=== PATIENT | male | born 1955 | race Caucasian/White ===

== ENCOUNTER 2019-01-11 08:18 | Inpatient (IN) ==
--- NOTE | 2019-01-04 09:48 | History & Physical Report ---
Date of Service January 04, 2019 date of surgery: 01-11-19 Assessment & Plan (1) Tricompartment osteoarthritis of left knee: Further care discussed with patient and at this point in time has failed conservative measures and would like to proceed with a left total knee replacement. Plan on discharge will be home with home health physical therapy. DVT prophalaxis with TEDs, SCDs and will also place on aspirin 81 mg p.o. b.i.d. for a month postop. Patient will have follow up appointment in our office two weeks post op for staple removal and re-evaluation. Patient otherwise has no other questions or concerns. History of Present Illness Chief Complaint: left knee pain Primary Care Provider: Ama Grayson Chris is a 63 year old male who complains of left knee pain, presents for pre-op evaluation prior to a left total knee replacement by dr Champion at [facility]. He complains of pain, crepitus, decreased range of motion, instability and stiffne ss in his knee. Chris states that the symptoms have been chronic and non- traumatic. He states that the symptoms occur constantly with intermittent worsening. Currently the patient states that the symptoms are moderate-severe. The pain is described as aching, sharp and throbbing. The symptoms occur continuously. The symptoms are aggravated by ascending stairs, daily activities, first steps while awake walking. Prior NSAIDs include Ibuprofen and Aleve. He has been treated with previous cortisone injections as well as visco injections in the past without much relief. at this point his pain is affecting his ADLs and would like to proceed with a left total knee replacement. Allergies Allergy/AdvReac Type Severity Reaction Status Date / Time Pertussis Vaccines Allergy Unknown Hives Verified 01/03/19 08:06 Home Medications Home Medications Medication Instructions Recorded Confirmed Type gabapentin 600 mg PO BID 01/03/19 01/03/19 History orlxosxb-zsae-itw6-C-arun-bosw 2 tab PO QAM 01/03/19 01/03/19 History [Osteo Bi-Flex Triple Strength] meloxicam 15 mg PO QAM 01/03/19 01/03/19 History methocarbamol 750 mg PO BID 01/03/19 01/03/19 History metoprolol tartrate 50 mg PO BID 01/03/19 01/03/19 History multivitamin 2 tab PO QAM 01/03/19 01/03/19 History Past Med/Surg History Medical History BPH (benign prostatic hyperplasia) Hypertension Osteoarthritis Surgical History Fusion of spine LOWER BACK-05/2018 [facility] History of colonoscopy Social History Preferred Language: Kazakh Communication Ability: Effective Flat Ironer Required: No Current Living Situation: Spouse Other Information That Helps Us Care for You: No Feels Safe at Home: Yes Safety Concerns: Feels Safe At This Time Smoking Status: Never smoker Do You Dip or Chew Tobacco: No (QUIT 2003) ; Second Hand Exposure: No ; Hx Alcohol Use: Yes Alcohol type: beer Hx Substance Use: No Review of Systems Review of Systems: All systems reviewed & are unremarkable except as noted in HPI & below Constitutional: no fever, no chills and no sweats Respiratory: no cough and no dyspnea Cardiovascular: no chest pain, no dyspnea and no orthopnea Gastrointestinal: no abdominal pain, no nausea and no vomiting Musculoskeletal: as per Subjective / HPI Physical Exam Physical Exam: Ht: 6ft 1in Wt: 151.95kg BP: 152/94 Pulse: 84 Constitutional: WD/WN, vitals as above no acute distress Respiratory: normal respiratory effort, lungs clear to auscultation no respiratory distress, no labored breathing and does not use accessory muscles Cardiovascular: RRR, no murmur, no edema Gastrointestinal (Abdomen): normal bowel sounds, soft, nontender, no hepatosplenomegaly Musculoskeletal: Knee: + effusion (+1 effusion), + limited ROM of knee (ROM 0/3/110), + knee ROM with crepitation, + joint line tenderness (medial joint line), + varus alignment and + Marcella's sign positive; no deformity, no skin erythema, no ecchymosis, no valgus laxity, no varus laxity, valgus stress test negative, varus stress test negative, anterior drawer test negative, posterior drawer test negative, Dianne's sign negative and pivot shift test negative Ankle: no deformity Results & Data Diagnostic Findings Left Knee X-ray 01-30-19 confirms advanced degenerative changes to the left knee, greatest medial compartment and patellofemoral joint, showing joint space narrowing, osteophyte formation and subchondral sclerosis. no acute bony pathology noted. no loose bodies noted.
--- NOTE | 2019-01-04 12:15 | PAT Medication Instructions ---
Medication Instructions Date of Service January 04, 2019 Home Medications gabapentin 600 mg PO BID cpckanaz-aasf-psz2-C-arun-bosw [Osteo Bi-Flex Triple Strength] 2 tab PO QAM meloxicam 15 mg PO QAM methocarbamol 750 mg PO BID metoprolol tartrate 50 mg PO BID multivitamin 2 tab PO QAM ASK your surgeon for instructions meloxicam 15 mg PO QAM STOP taking 2 weeks before surgery (or as soon as possible if surgery is within 2 weeks) tbsyqnxs-wvtq-spn5-C-arun-bosw [Osteo Bi-Flex Triple Strength] 2 tab PO QAM DO NOT take the morning of surgery methocarbamol 750 mg PO BID multivitamin 2 tab PO QAM Take morning of surgery With a small sip of water, OTHERWISE NOTHING TO EAT OR DRINK AFTER MIDNIGHT: gabapentin 600 mg PO BID metoprolol tartrate 50 mg PO BID Take evening before surgery gabapentin 600 mg PO BID methocarbamol 750 mg PO BID metoprolol tartrate 50 mg PO BID Other Notes If you have any questions please call us at [phone] or [phone] or [phone] or [phone]
--- NOTE | 2019-01-04 14:20 | Anesthesiology Consultation ---
Date of Service January 04, 2019 Assessment & Plan (1) Encounter for pre-operative examination: Chart Review Chart Review: Acceptable Risk for Surgery (pending surgeon-ordered PCP clearance done 01/02 (Dr. Grayson)) and Patient seen in Pre Admission Testing Teaching & Discussion Pre-Anesthesia Teaching/Discussion Notes: Instructed NPO after midnight before surgery,except medications with 15 cc of water. Medication instructions provided according to the PAT guidelines. History Surgery Operation Date: 01/11/19 10:25 Proposed Procedures p Left Total Knee Arthroplasty - Harish Champion DO Height/Weight Height: 6 ft 1 in Weight: 152.9 kg Allergies Allergy/AdvReac Type Severity Reaction Status Date / Time Pertussis Vaccines Allergy Unknown Hives Verified 01/03/19 08:06 acetaminophen [From Percocet] AdvReac "zombie-like" Verified 01/04/19 14:23 feeling, hallucinations cyclobenzaprine AdvReac "zombie-like" Verified 01/04/19 14:23 [From Flexeril] feeling, hallucinations oxycodone [From Percocet] AdvReac "zombie-like" Verified 01/04/19 14:23 feeling, hallucinations Medications Home Medications Medication Instructions Recorded Confirmed Last Taken gabapentin 600 mg PO BID 01/03/19 01/03/19 Unknown gqugqzzp-yunr-rcr5-C-arun-bosw 2 tab PO QAM 01/03/19 01/03/19 Unknown [Osteo Bi-Flex Triple Strength] meloxicam 15 mg PO QAM 01/03/19 01/03/19 Unknown methocarbamol 750 mg PO BID 01/03/19 01/03/19 Unknown metoprolol tartrate 50 mg PO BID 01/03/19 01/03/19 Unknown multivitamin 2 tab PO QAM 01/03/19 01/03/19 Unknown Past Medical History Medical History BPH (benign prostatic hyperplasia) Hypertension Morbid obesity Osteoarthritis Exercise / Class Metabolic Activity II 4-5 Yardwork/Stairs/Walk up hill Past Surgical History Surgical History Fusion of spine lumbar History of colonoscopy Past Anesthesia History No Family Hx of Anesthesia Complications and Other "Slow to wake" with lumbar fusion; no known hx of reintubation History of PONV No Hx of PONV and Hx of Motion Sickness (occasional) Social History Smoking Status: Never smoker Do You Dip or Chew Tobacco: No (QUIT 2003) Hx Alcohol Use: Yes Alcohol type: beer alcohol intake frequency: a few times a month Hx Substance Use: No Review of Systems Patient denies chest pain, shortness of breath, dyspnea on exertion, reflux, cough, wheezing, palpitations. Physical Exam Vital Signs VITALS BP 149/74 P 46 (chronic bradycardia; asymptomatic on beta amadeo) TEMP 98.1 SP02 94%RA RESP 18 PHYSICAL Full neck and c-spine range of motion. Full TMJ range of motion. TMD 3 finger breaths Mallampati Score 3 Dentition: intact Lungs: clear throughout to auscultation Cardiac: regular rate and rhythm, no murmurs noted Spine: normal Carotid arteries: negative bruit Extremities: no edema Short thick neck Testing Laboratory Results 01/04/19 14:37 01/04/19 14:37 PT 10.3 Seconds (9.0-12.0) 01/04/19 14:37 INR 1.0 (0.9-1.1) 01/04/19 14:37 APTT 25.6 Seconds (21.0-31.0) 01/04/19 14:37 Urine Color Yellow 01/04/19 Unknown Urine Appearance Clear (Clear) 01/04/19 Unknown Urine pH 5.0 (4.5-7.5) 01/04/19 Unknown Ur Specific [place] 1.018 (1.000-1.030) 01/04/19 Unknown Urine Protein Negative (Negative) 01/04/19 Unknown Urine Glucose (UA) Negative (Negative) 01/04/19 Unknown Urine Ketones Negative (Negative) 01/04/19 Unknown Urine Nitrite Negative (Negative) 01/04/19 Unknown Ur Leukocyte Esterase Negative (Negative) 01/04/19 Unknown Blood Type A Positive 01/04/19 14:37 Antibody Screen NEGATIVE 01/04/19 14:37 Electrocardiogram Date: 04/20/18 SB at 44bpm. Old inferior infarct. Chest X-Ray Date: 01/04/19 Atherosclerosis of the aortic arch. Cardiac silhouette enlarged. Lungs and pleural spaces clear. Degenerative changes of the thoracic spine. Old posterior right upper rib fractures may be present. Upper abdomen normal. Cardiomegaly. No other convincing evidence of acute cardiopulmonary disease.
--- NOTE | 2019-01-04 14:56 | XRay Report ---
XR chest Pre-admission PA/Lat CLINICAL HISTORY: 63 years-old Male presenting with preoperative assessment. TECHNIQUE: PA and lateral views of the chest were obtained. COMPARISON: None. FINDINGS: Atherosclerosis of the aortic arch. Cardiac silhouette enlarged. Lungs and pleural spaces clear. Dege nerative changes of the thoracic spine. Old posterior right upper rib fractures may be present. Upper abdomen normal. IMPRESSION: 1. Cardiomegaly. No other convincing evidence of acute cardiopulmonary disease. Electronically signed by: Porfirio Yang M.D. 01/04/2019 2:55 PM
[2019-01-04 15:47] LABS: Basophils # (auto) 0.04 K/uL (0-0.2); Basophils % (auto) 0.5 %; Eosinophils # (auto) 0.27 K/uL (0-0.5); Eosinophils % (auto) 3.6 %; Hematocrit (blood only) 44.5 % (42-52); Hemoglobin 15.1 g/dL (14.0-18.0); Immature Granulocytes # (auto) 0.03 K/uL (0.00-0.02); Immature Granulocytes % (auto) 0.4 %; Lymphocytes # (auto) 2.07 K/uL (1.2-3.4); Lymphocytes % (auto) 27.2 %; Mean Corpuscular Hemoglobin 29.7 pg (25-34); Mean Corpuscular Hgb Conc 33.9 g/dL (32-36); Mean Corpuscular Volume 87.6 fL (80-100); Mean Platelet Volume 12.2 fL (7.4-10.4); Monocytes # (auto) 0.52 K/uL (0.11-0.59); Monocytes % (auto) 6.8 %; Neutrophils # (auto) 4.67 K/uL (1.4-6.5); Neutrophils % (auto) 61.5 %; Platelet Count 209 K/uL (130-400); RDW Coefficient of Variation 13.8 % (11.5-14.5); RDW Standard Deviation 44.2 fL (36.4-46.3); Red Blood Count 5.08 M/uL (4.7-6.1)
[2019-01-04 15:48] LABS: Appearance Urine Clear (Clear); Bilirubin Urine Negative (Negative); Blood Urine Negative (Negative); Color Urine Yellow; Glucose Urine UA Negative (Negative); Ketones Urine Negative (Negative); Leukocyte Esterase Urine Negative (Negative); Nitrite Urine Negative (Negative); Protein Urine Negative (Negative); Specific Gravity Urine 1.018 (1.000-1.030); Urobilinogen Urine Negative (Negative)
[2019-01-04 15:58] LABS: Partial Thromboplastin Ratio 0.9; Partial Thromboplastin Time 25.6 Seconds (21.0-31.0); Prothrombin Time 10.3 Seconds (9.0-12.0)
[2019-01-04 16:10] LABS: Albumin Level 4.1 gm/dl (3.4-5.0); BUN Creatinine Ratio 12.1 (10-20); Calcium 9.2 mg/dl (8.5-10.1); Creatinine Clr Calc Pharmacy 96.5 ml/min; Est GFR (African American) 72.3; Est GFR (Non-African American) 62.4; Potassium 4.6 mmol/L (3.5-5.1)
[2019-01-05 06:03] LABS: Estimated Average Glucose 111 mg/dl; Hemoglobin A1C 5.5 % (4.5-5.6)
[~2019-01-11 08:18] MED LIST: ACETAMINOPHEN 500 MG TAB PO SCH; BUPIVACAINE 0.5 % 5 MG/1 ML PF 10ML VIAL ONE; CEFAZOLIN 3000MG 72.5 ML IV SCH; CeleBREX 200 MG CAP PO SCH; EPINEPHrine INJ 1 MG/ML AMP ONE; FAMOTIDINE 20 MG TAB PO SCH; GABAPENTIN 600 MG DOSE PO SCH; LR 500ML BOLUS, THEN 15ML/HR IV SCH; METOCLOPRAMIDE HCL 10 MG TABLET PO SCH; ROPIVACAINE 0.5% 5 MG/ML 30 ML VIAL ONE; ROPIVACAINE 0.5% HCL/PF 150 MG, BUPIVACAINE 0.5% MPF 30 ML, EPINEPHrine 30MG/30ML (OR U... INSTIL SCH; TRANEXAMIC ACID 1,000 MG **IV Intra-op IV SCH; TRANEXAMIC ACID 1,000 MG **IV Pre-op IV SCH; dexAMETHasone 4 MG TAB PO SCH
[2019-01-11] MEDS ORDERED: fentaNYL citrate 100 MCG/2 ML VIAL ONE ×3 (09:04→13:03)
[2019-01-11] MEDS ORDERED: PROPOFOL IV EMULSION 10 MG/ML 20 ML VIAL IV ONE ×3 (09:04→11:32)
[2019-01-11] MEDS ORDERED: LIDOCAINE HCL 2% 2 ML VIAL/AMP(20MG/ML) INFIL ONE (09:04)
[2019-01-11] MEDS ORDERED: MIDAZOLAM HCL 1 MG/ML 2ML VIAL ONE (09:04)
--- NOTE | 2019-01-11 09:46 | History & Physical Bridge Note ---
Date of Service January 11, 2019 History & Physical Bridge Note I have examined the patient, reviewed the History & Physical and in the interval since the performance of the History & Physical I have noted the following changes of clinical significance: no changes noted
[2019-01-11] MEDS ORDERED: ORTHO JOINT ANESTHETIC ONE (10:15)
[2019-01-11] MEDS ORDERED: BACITRACIN INJ 50,000 UNIT VIAL ONE (10:15)
[2019-01-11] MEDS ORDERED: DEXAMETHASONE SOD INJ 4 MG/ML VIAL ONE (11:14)
[2019-01-11] MEDS ORDERED: ONDANSETRON INJ 2 MG/ML 2 ML VIAL ONE (11:14)
[2019-01-11] MEDS ORDERED: HYDROmorphone INJ 2 MG/ML SYR/VIAL ONE (11:36)
--- NOTE | 2019-01-11 12:28 | Operative Report ---
Post Operative Report Pre & Post Diagnosis Operation Date: 01/11/19 11:00 Pre-Op Diagnosis: Unilateral Primary Osteoarthritis, Left Knee BMI 44.5 Post-Op Diagnosis: Unilateral Primary Osteoarthritis, Left Knee BMI 44.5 Procedure Operation Date: 01/11/19 11:00 Actual Procedures p Left Total Knee Arthroplasty(Left) utilizing Pepe [employer] Nephew non-block total knee arthroplasty size 7 femur 7 tibia 11 polyethylene 35 oval patella-BMI 44.5 Harish Champion DO Surgeon Harish Champion DO High School [employer] Instructor Bob COTE Estimated Blood Loss 5 Findings Consistent with Post-Op Diagnosis Patient presents with severe end-stage tricompartmental degenerative joint disease left knee no response to conservative management plan findings times surgery note and findings consistent with that of a eburnated [id number]-[id number] medial compartment patellofemoral compartment marginal osteophyte subchondral sclerosis and subchondral cystic changes large effusion. Specimens Bone and cartilage Drains Medium bore Hemovac Anesthesia Type General Regional Complications none Disposition Accompanied Patient To Recovery: No Disposition: Recovery Room Indications Patient presents being seen and evaluated for complaints of ongoing pain throughout his left knee is no response to conservative management including physical therapy anti-inflammatories relative rest activity modifications corticosteroid injections Visco supplementation patient has been on weight loss program remains at a BMI of 44.5 Description of Procedure After proper prepping and draping of the left lower extremity anterior midline incision was made over the region of the extensor extensor mechanism after meticulous hemostasis was obtained and maintained in subcutaneous tissues a medial parapatellar incision was made The patella was subluxed lateralward the medial lateral gutter were cleaned from any hypertrophic synovitis and scar tissue of the distal femoral block was placed and the distal femoral osteotomy cut was made subsequently the chamfers anterior and posterior osteotomy cuts were made utilizing the 4-in-1 block the tibia was subsequently subluxed anteriorward medial and ateral meniscal remnants were excised in their entirety remnants of the anterior and posterior cruciate ligaments were excised in their entirety excellent exposure of the proximal tibia was obtained the tibial osteotomy guide was placed on the proximal tibial osteotomy cut was made once again the knee was irrigated with copious amounts of sterile saline solution the patella was subsequently everted lateralward thickened scar tissue around the patella was removed the patella was subsequently cut utilizing a freehand technique and was drilled prepared for final preparation and placement of patella socially flexion-extension gaps were checked and the equal and symmetric trials were placed to the appropriate femoral and tibial trials with poly-spacer being placed for equal flexion and extension gaps and full range of motion including extension to 0 and flexion to 140 the trial components after having been taken to recovery range of motion was subsequently removed meticulous hemostasis was obtained and maintained subsequently a knee block injection of joint cocktail including ropivacaine 0.5% 150 mg. Bupivacaine 0.5% epinephrine 1-200,030 mL's toradol 30 mg dexamethasone 4 mg ketamine 10 mg clonidine 100 micrograms normal saline solution 30 mg was infiltrated into the soft tissues of the posterior knee medial lateral gutters and periosteal synovium special attention was paid to protect neurovascular structures at all times subsequently trial components having been removed the knee was irrigated with sterile saline solution. debris was removed the proximal tibia was subsequently prepared and was made ready for the placement of the tibial component tibial component was also cemented and tamped into position the femoral component was subsequently placed and cemented in the position the patellar component was subsequently cemented in position because hemostasis once again obtained and maintained wound having been thoroughly irrigated with debridement and debridement lavage was performed as well as a medial parapatellar incision closed with #1 Vicryl in interrupted fashion subcutaneous was closed with #2 Vicryl skin was closed with skin clips. PA-C was necessary for prepping and drapping as well as wound closure of deep fascia Sub cutaneous tissue and skin and was necessary for the case. A sterile compressive dressing was placed patient was taken to recovery in stable condition of report dictated by Akira I attest to the content of the Intraoperative Record and any orders documented therein. Any exceptions are noted below. I attest to the content of the Intraoperative Record and any orders documented therein. Any exceptions are noted below.
[2019-01-11] MEDS ORDERED: LABETALOL HCL IV 5 MG/ML 20ML IV PRN (12:30)
[2019-01-11] MEDS ORDERED: ATROPINE SULFATE 0.1 MG/ML 10ML SYR IV PRN (12:30)
[2019-01-11] MEDS ORDERED: ePHEDrine sulfate 50 MG/ML AMP IV PRN (12:30)
[2019-01-11] MEDS ORDERED: FLUMAZENIL 0.1 MG/1 ML 10 ML VIAL IV PRN (12:30)
[2019-01-11] MEDS ORDERED: PROMETHAZINE HCL 12.5 MG in SODIUM CHLORIDE 0.9% 50 ML IV PRN (12:30)
[2019-01-11] MEDS ORDERED: ONDANSETRON INJ 2 MG/ML 2 ML VIAL IV PRN ×2 (12:30→14:51)
[2019-01-11] MEDS ORDERED: NALOXONE HCL 0.4 MG/1 ML VIAL/CARP IV PRN ×2 (12:30→14:51)
[2019-01-11] MEDS: HYDROmorphone INJ 0.5 MG/0.5 ML SYR IV PRN ×2 (13:58→14:03)
--- NOTE | 2019-01-11 14:01 | XRay Report ---
LEFT KNEE 2 VIEWS History: Left total knee arthroplasty. Degenerative arthritis. Postop. FINDINGS: The patient is status post a left total knee arthroplasty. The hardware is intact. No fract ure or dislocation. Skin pedro are in place. IMPRESSION: Left total knee arthroplasty. No evidence for hardware complication. Electronically signed by: Blue Babcock M.D. 01/11/2019 2:00 PM
--- NOTE | 2019-01-11 14:34 | Anesthesiology Progress Note ---
Date of Service January 11, 2019 Anesthesia Post Procedure Vital Signs Vital Signs: Temp Pulse Pulse Resp BP Pulse Ox 01/11/19 14:20 36.5 C 48 L 15 137/81 94 01/11/19 14:10 36.5 C 48 L 15 149/76 H 96 01/11/19 14:00 36.3 C L 50 L 13 132/76 95 01/11/19 13:50 36.3 C L 49 L 12 150/88 H 95 01/11/19 13:40 36.3 C L 48 L 12 137/72 93 01/11/19 13:30 36.3 C L 76 14 147/82 H 90 01/11/19 13:24 36.3 C L 62 18 150/92 H 92 01/11/19 08:45 36.6 C 43 L 20 156/99 H 96 Transfer of Care Handoff Completed per policy Notes Mental Status: alert / awake / arousable Patient Amnestic to Procedure: Yes Nausea / Vomiting: adequately controlled Pain: adequately controlled Airway Patency, RR, SpO2: stable & adequate BP & HR: stable & adequate Hydration State: stable & adequate Anesthetic Complications: no major complications apparent
[2019-01-11] MEDS ORDERED: HYDROmorphone INJ 0.5 MG/0.5 ML SYR IV PRN (14:51)
[2019-01-11] MEDS ORDERED: BISACODYL 10 MG SUPP PR PRN (14:51)
[2019-01-11] MEDS ORDERED: MAGNESIUM HYDROXIDE SUSP 30 ML UDC PO PRN (14:51)
[2019-01-11] MEDS ORDERED: SODIUM CHLORIDE 0.9% 1000ML 1,000 ML IV SCH (15:00)
[2019-01-11] MEDS: ACETAMINOPHEN 500 MG TAB PO SCH (17:02)
[2019-01-11] MEDS: FERROUS GLUCONATE 324 MG TAB PO SCH (17:02)
[2019-01-11] MEDS: DOCUSATE SODIUM 100 MG CAP PO SCH (20:05)
[2019-01-11] MEDS: METOPROLOL TARTRATE 50 MG TAB PO SCH (20:05)
[2019-01-11] MEDS: CEFAZOLIN 2000MG 2,000 MG/15 ML SYR IV SCH (20:05)
[2019-01-11] MEDS: ASPIRIN 81 MG ECTAB PO SCH (20:05)
[2019-01-11] MEDS: GABAPENTIN 600 MG TAB PO SCH (20:05)
[2019-01-11] MEDS: METHOCARBAMOL 750 MG TABLET PO SCH (20:05)
[2019-01-11] MEDS ORDERED: SENNA 8.6 MG TAB PO SCH (21:00)
[2019-01-12] MEDS: CEFAZOLIN 2000MG 2,000 MG/15 ML SYR IV SCH (03:48)
[2019-01-12] MEDS: OXYCODONE HCL IR 5 MG TAB (IMMEDIATE RELEASE) PO PRN ×3 (06:14→15:56)
[2019-01-12] MEDS: ACETAMINOPHEN 500 MG TAB PO SCH ×2 (06:14→14:13)
[2019-01-12 06:58] LABS: Hematocrit (blood only) 41.5 % (42-52); Hemoglobin 14.1 g/dL (14.0-18.0); Mean Corpuscular Hemoglobin 29.9 pg (25-34); Mean Corpuscular Volume 88.1 fL (80-100); Mean Platelet Volume 11.5 fL (7.4-10.4); Platelet Count 201 K/uL (130-400); RDW Coefficient of Variation 13.8 % (11.5-14.5); RDW Standard Deviation 44.7 fL (36.4-46.3); Red Blood Count 4.71 M/uL (4.7-6.1); White Blood Count 17.34 K/uL (4.8-10.8)
--- NOTE | 2019-01-12 07:16 | Orthopedic Progress Note ---
Date of Service January 12, 2019 Assessment & Plan (1) Status post total left knee replacement: POD #1 s/p Left TKA pt/ot dvt proph with FAUSTO/SCD/ASA recheck after PT today for poss discharge after PT today Subjective POD #1 s/p Left TKA Review of Systems Constitutional: no fever, no chills and no sweats Respiratory: no cough and no dyspnea Cardiovascular: no chest pain and no dyspnea Gastrointestinal: no abdominal pain, no nausea and no vomiting Physical Exam Physical Exam: Vital Signs Temp 36.7 C 01/12/19 03:30 Pulse 48 L 01/12/19 03:30 Resp 18 01/12/19 03:30 BP 127/75 01/12/19 03:30 Pulse Ox 94 01/12/19 03:30 Intake & Output 01/11/19 01/12/19 01/12/19 18:59 06:59 18:59 Intake Total 2392.5 / 3145.833 753.333 / 3145.833 Output Total 305 / 1880 1575 / 1880 400 / 400 Balance 2087.5 / 1265.833 -821.667 / 1265.83 3 -400 / -400 Weight 152 kg Intake: IV 792.5 / 1245.833 453.333 / 1245.833 Ancef 3000MG 7 2.5 ml @ 130 mls/ 72.5 / 72.5 hr IV PREOP SC H Rx#:[id number] Lr 1,000 ml @ 15 mls/hr IV . 500 / 500 Q24H LYNSEY Rx#:[id number] Nss 1000ML 1,0 00 ml @ 100 mls/ 453.333 / 453.333 hr IV .Q10H SC H Rx#:[id number] Cyklokapron 1, 000 mg In Sodium 220 / 220 Chloride 100 m l @ 660 mls/hr IV 0630 LYNSEY Rx#:[id number] IV Perioperative 1600 / 1600 Oral 300 / 300 Output: Urine 300 / 1875 1575 / 1875 400 / 400 Estimated Blood Loss 5 / 5 Constitutional: WD/WN, vitals as above no acute distress Musculoskeletal: Left Leg: NVDI, calf SNT, negative esteban sign. DP palpable, able to wiggle toes/ankle movement without difficulty. dressing clean dry and intact. Results & Data Vital Signs (Past 12 Hours) Vital Signs Temp Pulse Resp BP Pulse Ox 01/12/19 03:30 36.7 C 48 L 18 127/75 94 01/11/19 23:35 36.5 C 44 L 17 123/68 01/11/19 19:26 36.5 C 73 16 150/79 H 96 Laboratory Results Laboratory Results WBC 17.34 K/uL (4.8-10.8) H 01/12/19 06:34 RBC 4.71 M/uL (4.7-6.1) 01/12/19 06:34 Hgb 14.1 g/dL (14.0-18.0) 01/12/19 06:34 Hct 41.5 % (42-52) L 01/12/19 06:34 MCV 88.1 fL (80-100) 01/12/19 06:34 MCH 29.9 pg (25-34) 01/12/19 06:34 MCHC 34.0 g/dL (32-36) 01/12/19 06:34 RDW Std Deviation 44.7 fL (36.4-46.3) 01/12/19 06:34 RDW Coeff of Maykel 13.8 % (11.5-14.5) 01/12/19 06:34 Plt Count 201 K/uL (130-400) 01/12/19 06:34 MPV 11.5 fL (7.4-10.4) H 01/12/19 06:34 Immature Gran % (Auto) 0.4 % 01/04/19 14:37 Neut % (Auto) 61.5 % 01/04/19 14:37 Lymph % (Auto) 27.2 % 01/04/19 14:37 [place] % (Auto) 6.8 % 01/04/19 14:37 Eos % (Auto) 3.6 % 01/04/19 14:37 Baso % (Auto) 0.5 % 01/04/19 14:37 Immature Gran # (Auto) 0.03 K/uL (0.00-0.02) H 01/04/19 14:37 Neut # (Auto) 4.67 K/uL (1.4-6.5) 01/04/19 14:37 Lymph # (Auto) 2.07 K/uL (1.2-3.4) 01/04/19 14:37 [place] # (Auto) 0.52 K/uL (0.11-0.59) 01/04/19 14:37 Eos # (Auto) 0.27 K/uL (0-0.5) 01/04/19 14:37 Baso # (Auto) 0.04 K/uL (0-0.2) 01/04/19 14:37 PT 10.3 Seconds (9.0-12.0) 01/04/19 14:37 INR 1.0 (0.9-1.1) 01/04/19 14:37 APTT 25.6 Seconds (21.0-31.0) 01/04/19 14:37 PTT Ratio 0.9 01/04/19 14:37 Sodium 140 mmol/L (136-145) 01/12/19 06:34 Potassium 4.6 mmol/L (3.5-5.1) 01/12/19 06:34 Chloride 109 mmol/L (98-107) H 01/12/19 06:34 Carbon Dioxide 24 mmol/L (21-32) 01/12/19 06:34 Anion Gap 7.0 (3-11) 01/12/19 06:34 BUN 19 mg/dl (7-18) H 01/12/19 06:34 Creatinine 1.24 mg/dl (0.6-1.4) 01/12/19 06:34 Est Cr Clr Drug Dosing 96.2 ml/min 01/12/19 06:34 Est GFR ( Amer) 72.3 01/12/19 06:34 Est GFR (Non-Af Amer) 62.4 01/12/19 06:34 BUN/Creatinine Ratio 15.1 (10-20) 01/12/19 06:34 Glucose 140 mg/dl (70-99) H 01/12/19 06:34 Estimat Average Glucose 111 mg/dl 01/04/19 14:37 Hemoglobin A1c 5.5 % (4.5-5.6) 01/04/19 14:37 Calcium 8.5 mg/dl (8.5-10.1) 01/12/19 06:34 Albumin 4.1 gm/dl (3.4-5.0) 01/04/19 14:37 Urine Color Yellow 01/04/19 Unknown Urine Appearance Clear (Clear) 01/04/19 Unknown Urine pH 5.0 (4.5-7.5) 01/04/19 Unknown Ur Specific [place] 1.018 (1.000-1.030) 01/04/19 Unknown Urine Protein Negative (Negative) 01/04/19 Unknown Urine Glucose (UA) Negative (Negative) 01/04/19 Unknown Urine Ketones Negative (Negative) 01/04/19 Unknown Urine Blood Negative (Negative) 01/04/19 Unknown Urine Nitrite Negative (Negative) 01/04/19 Unknown Urine Bilirubin Negative (Negative) 01/04/19 Unknown Urine Urobilinogen Negative (Negative) 01/04/19 Unknown Ur Leukocyte Esterase Negative (Negative) 01/04/19 Unknown Blood Type A Positive 01/04/19 14:37 Antibody Screen NEGATIVE 01/04/19 14:37 Diagnostic Findings LEFT KNEE 2 VIEWS History: Left total knee arthroplasty. Degenerative arthritis. Postop. FINDINGS: The patient is status post a left total knee arthroplasty. The hardware is intact. No fracture or dislocation. Skin pedro are in place. IMPRESSION: Left total knee arthroplasty. No evidence for hardware complication.
[2019-01-12] MEDS: FERROUS GLUCONATE 324 MG TAB PO SCH (07:33)
[2019-01-12] MEDS: ASPIRIN 81 MG ECTAB PO SCH (07:34)
[2019-01-12] MEDS: GABAPENTIN 600 MG TAB PO SCH (07:34)
[2019-01-12] MEDS: METHOCARBAMOL 750 MG TABLET PO SCH (07:35)
[2019-01-12] MEDS: METOPROLOL TARTRATE 50 MG TAB PO SCH (07:36)
[2019-01-12] MEDS: DOCUSATE SODIUM 100 MG CAP PO SCH (07:37)
[2019-01-12 07:38] LABS: BUN Creatinine Ratio 15.1 (10-20); Calcium 8.5 mg/dl (8.5-10.1); Creatinine Clr Calc Pharmacy 96.2 ml/min; Est GFR (African American) 72.3; Est GFR (Non-African American) 62.4; Potassium 4.6 mmol/L (3.5-5.1)
[2019-01-12] MEDS ORDERED: MULTIVITAMIN TAB PO SCH (09:00)
--- NOTE | 2019-01-12 10:31 | Anesthesiology Progress Note ---
Date of Service January 12, 2019 Anesthesia Post Procedure Vital Signs Vital Signs: Temp Pulse Pulse Resp BP Pulse Ox 01/12/19 07:54 36.5 C 50 L 16 151/81 H 94 01/12/19 03:30 36.7 C 48 L 18 127/75 94 01/11/19 23:35 36.5 C 44 L 17 123/68 01/11/19 19:26 36.5 C 73 16 150/79 H 96 01/11/19 17:48 37.0 C 75 16 162/85 H 95 01/11/19 16:49 36.5 C 52 L 16 150/81 H 98 01/11/19 15:51 37 C 50 L 16 142/77 H 94 01/11/19 15:17 36.7 C 74 16 156/87 H 97 01/11/19 14:45 36.6 C 49 L 18 151/78 H 98 01/11/19 14:20 36.5 C 48 L 15 137/81 94 01/11/19 14:10 36.5 C 48 L 15 149/76 H 96 01/11/19 14:00 36.3 C L 50 L 13 132/76 95 01/11/19 13:50 36.3 C L 49 L 12 150/88 H 95 01/11/19 13:40 36.3 C L 48 L 12 137/72 93 01/11/19 13:30 36.3 C L 76 14 147/82 H 90 01/11/19 13:24 36.3 C L 62 18 150/92 H 92 Notes Mental Status: alert / awake / arousable and participated in evaluation Patient Amnestic to Procedure: Yes Nausea / Vomiting: adequately controlled Pain: adequately controlled Airway Patency, RR, SpO2: stable & adequate BP & HR: stable & adequate Hydration State: stable & adequate Neuraxial Anesthesia: sensory block resolved Anesthetic Complications: no major complications apparent and Pt Satisfied with anesthetic care
[2019-01-12 11:02] VITALS: BP 155/75; PULSE 53; TEMP 97.9; O2SAT 95
--- NOTE | 2019-01-16 15:34 | Discharge Summary ---
Date of Service January 16, 2019 Admission HPI Per Admitting Provider Chris is a 63 year old male who complains of left knee pain, presents for pre- op evaluation prior to a left total knee replacement by dr Champion at [facility]. He complains of pain, crepitus, decreased range of motion, instability and stiffness in his knee. Chris states that the symptoms have been chronic and non-traumatic. He states that the symptoms occur constantly with intermittent worsening. Currently the patient states that the symptoms are moderate-severe. The pain is described as aching, sharp and throbbing. The symptoms occur continuously. The symptoms are aggravated by ascending stairs, daily activities, first steps while awake walking. Prior NSAIDs include Ibuprofen and Aleve. He has been treated with previous cortisone injections as well as visco injections in the past without much relief. at this point his pain is affecting his ADLs and would like to proceed with a left total knee replacement. Admission Exam Per Admitting Provider Constitutional: WD/WN, vitals as above no acute distress Respiratory: normal respiratory effort, lungs clear to auscultation no respiratory distress, no labored breathing and does not use accessory muscles Cardiovascular: RRR, no murmur, no edema Gastrointestinal (Abdomen): normal bowel sounds, soft, nontender, no hepatosplenomegaly Musculoskeletal: Knee: + effusion (+1 effusion), + limited ROM of knee (ROM 0/3/110), + knee ROM with crepitation, + joint line tenderness (medial joint line), + varus alignment and + Marcella's sign positive; no deformity, no skin erythema, no ecchymosis, no valgus laxity, no varus laxity, valgus stress test negative, varus stress test negative, anterior drawer test negative, posterior drawer test negative, Dianne's sign negative and pivot shift test negative Ankle: no deformity Principal Diagnosis Djd Left Knee Discharge Exam Constitutional: WD/WN, vitals as above no acute distress Musculoskeletal: Left Leg: NVDI, calf SNT, negative esteban sign. DP palpable, able to wiggle toes/ankle movement without difficulty. dressing clean dry and intact. Discharge Data Allergies Allergy/AdvReac Type Severity Reaction Status Date / Time Pertussis Vaccines Allergy Unknown Hives Verified 01/11/19 08:44 cyclobenzaprine AdvReac "zombie-like" Verified 01/11/19 08:44 [From Flexeril] feeling, hallucinations Consultations 01/11/19 14:51 Consult Case Management - Discharge Planning Routine Procedures Performed Operation Date: 01/11/19 11:00 Actual Procedures p Left Total Knee Arthroplasty(Left) - Harish Champion DO Ordered Studies 01/11/19 05:00 US - OR guided needle placemen Routine Hospital Course (1) Tricompartment osteoarthritis of left knee: Patient was admitted on the above-noted date and had the above-noted surgery performed which he tolerated well. On his first postoperative day, he was remaining stable. Pain was controlled. He had no complaints. Dressings were clean, dry, and intact. Calves were soft, nontender. Toes are mobile. Neurovascular is intact. He was started on PT and OT protocols and progressed well. I saw the patient later in the afternoon. With his progression in PT, he was remaining stable and was felt he can be discharged home. He was thusly discharged home on 01/12/2019. Total Time Total Time Spent Total Time Spent (In Minutes): 1 Discharge Plan Discharge Items Patient Disposition: Home - Home Health Services Reason For Visit: Unilateral Primary Osteoarthritis, Left Knee Discharge Diagnosis: left total knee replacement Condition: Good Discharge Goals: Decrease discomfort, Improve function and Increase independence Activity: Per Instructions section Lifting: Wait until after follow-up appointment Weightbearing Comment: WBAT with walker Non-emergency contact: Surgeon Call non-emergency contact if: you have any medication questions, your temperature is above 101, your wound has increased redness, your wound has increased drainage and your wound pain has increased Follow-up/Referrals: Ama Grayson D.O. [Primary Care Provider] - Diet: Regular Addtl Provider Instructions: ACTIVITY RECOMMENDATIONS: SELF CARE INSTRUCTIONS AFTER TOTAL KNEE REPLACEMENT A. You may need to continue a physical therapy program after discharge from the hospital. There are several options available to you. Your doctor will assist you in selecting the best one for you. 1. An out-patient facility 2 to 3 times a week for therapy or home therapy. 2. Continue working on all exercises taught to you in the hospital. Your goals should be to increase bending of your knee to 90 degrees and beyond and to fully straighten your knee. B. You may progress at your own pace from walking with a walker or crutches to a cane; then to no assistive devices. C. Make walking a part of your daily routine. Be up as much as comfortable with rest periods throughout the day. Rest with leg elevation is very important. Use the ice wrap frequently for the first 3-4 weeks. D. There are no restrictions on activities. You may ride in a car, shop, participate in cultural centre manager and all social activities. E. Wear the long elastic stockings (FAUSTO hose) 20 hours a day for 2 weeks after surgery. They can be removed several times a day for laundering and for a bath. F. You may shower, no tub baths until cleared by your doctor. SPECIAL CARE INSTRUCTIONS: VERY IMPORTANT TO READ AND REVIEW A. There are a few signs you need to watch for after you are home. Call [facility] if you notice any of the followin. Increased severe knee pain. Some pain is expected especially when you exercise. 2. Increased swelling in your leg or knee; pain or swelling of the calf muscle in either lower leg. 3. Any fluid drainage from the incision. 4. Shortness of breath or chest pain. B. Please call [facility] at if you have any concerns or questions about your operation or recovery. The doctor or his nurse will return your call promptly. C. You must take antibiotics before dental work, bladder, bowel or other surgery. Your doctor will provide you with a permanent care to carry describing this precaution. IMPORTANT: * REMEMBER TO TAKE ASPIRIN, 81 MG, TWICE DAILY FOR 4 WEEKS UNLESS OTHERWISE DIRECTED. THIS IS YOUR BLOOD THINNER. * HIGH RISK PATIENTS MAY BE PRESCRIBED A STRONGER BLOOD THINNER. THIS WILL BE PROVIDED AT DISCHARGE. * CALL IF INCREASED PAIN, REDNESS, DRAINAGE OR FEVER GREATER THAT 101. * WEAR FAUSTO HOSE 20 HOURS PER DAY FOR 2 WEEKS. * Prevena- This is a large suction dressing covering your incision. This will help pull any excess drainage from the wound and allow your incision to heal properly. You may shower with this if you can keep the unit outside of the shower. If any bleeding or leakage is noted please call your doctor's office. This will remain on your incision for 7 days and then should be removed. This can be done yourself or by the home nursing staff if applicable. The entire unit is disposable once removed. Once removed, keep incision clean and dry. If redness or drainage is noted, please call your surgeon. IF INCISION IS LEAKING THROUGH DRESSING, CALL THE OFFICE . FOLLOW UP VISIT: If appointment is not already scheduled: Please call [facility] to make a follow-up appointment for 2 weeks after your surgery at . Prescriptions: New aspirin [Ecotrin Low Strength] 81 mg Tablet,Delayed Release (Dr/Ec) 81 mg PO BID 30 Days Qty: 60 RF: 0 acetaminophen [Tylenol Extra Strength] 500 mg Tablet 1,000 mg PO Q8 14 Days Qty: 84 RF: 0 oxycodone 5 mg Tablet 5 - 10 mg PO Q6H PRN (Reason: pain) Qty: 30 RF: 0 sennosides [Senokot] 8.6 mg Tablet 17.2 mg PO HS Qty: 30 RF: 0 Continued gabapentin 600 mg Tablet 600 mg PO BID RF: 0 methocarbamol 750 mg Tablet 750 mg PO BID RF: 0 metoprolol tartrate 50 mg Tablet 50 mg PO BID RF: 0 multivitamin Tablet,Chewable 2 tab PO QAM RF: 0 Discontinued meloxicam 15 mg Tablet 15 mg PO QAM RF: 0 Osteo Bi-Flex Triple Strength 750 mg-644 mg- 30 mg-1 mg Tablet 2 tab PO QAM RF: 0 oxycodone-acetaminophen [Percocet] 5-325 mg Tablet 1 tab PO Q6H PRN (Reason: Pain) RF: 0 Stand-Alone Forms: [employer], Opioid Pain Management [employer]/Other Patient Handouts: Knee How Works, Surgery Knee Exercise After, R eplacement Knee Home After, Replacement Knee First Month Discharge Orders: Discharge Order (Routine); Ordered 01/12/19 Ordered By: Bob Hough Admission Data Admit Date/Time: 01/11/19 13:33 Attending Provider: Harish Champion Admit Provider: Harish Champion Primary Care Provider: Ama Grayson Service: Surgical Services Other Interventions: Discharge Summary Assessment (RN) Last Done: 01/12/19 13:29 DC Date/Time DO NOT enter until pt leaves facility: 01/12/19 16:08
== END 2019-01-12 16:08 | disposition home health service (06) | DRG 470 ==
LOC: ASU 08:18 → 3E 13:33
DX: M17.12 Unilateral primary osteoarthritis, left knee; Z88.7 Allergy status to serum and vaccine; Z79.1 Long term (current) use of non-steroidal anti-inflammatories (NSAID); Z68.41 Body mass index [BMI] 40.0-44.9, adult; I10 Essential (primary) hypertension; Z79.899 Other long term (current) drug therapy; Z87.891 Personal history of nicotine dependence; E66.01 Morbid (severe) obesity due to excess calories